=== PATIENT | female | born 1985 | race Caucasian/White ===

== ENCOUNTER 2017-03-11 12:37 | Emergency (ER) | payer OTHER | END 2017-03-11 14:00 | disposition left against medical advice (07) | LOC: ER 12:37 | DX: R10.9 Unspecified abdominal pain (principal); F31.9 Bipolar disorder, unspecified; F43.10 Post-traumatic stress disorder, unspecified; Z90.49 Acquired absence of other specified parts of digestive tract; Z87.442 Personal history of urinary calculi; Z90.710 Acquired absence of both cervix and uterus; Z79.899 Other long term (current) drug therapy | CPT/HCPCS: 36415 ==